=== PATIENT | female | born 1955 | race Caucasian/White ===

== ENCOUNTER 2025-01-02 09:45 | Emergency (ER) | payer MEDICARE, SELFPAY ==
[2025-01-02] VITALS (7 sets, daily range): BP systolic 123–172; BP diastolic 59–98; BMI 20.9
--- NOTE | 2025-01-02 09:58 | ED.GENMED ---
History of Present Illness
General
Chief Complaint: Chest Pain
Source: patient
Exam Limitations: none
Time Seen by Provider: 01/02/25 09:55
History of Present Illness
History of Present Illness:
69yoF with no significant past medical history presenting for evaluation of chest pain. Patient reports a history of anxiety and typically has some dull chest pain daily. She was in the process of waking up this morning around 5:30 AM when she
reports two episodes of sharp discomfort that occurred in succession. The sharp pain has since resolved but she has been experiencing some dull pain which she states is typical for her. She denies any associated dizziness, syncope, diaphoresis,
shortness of breath, nausea, vomiting. 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 She does not take any prescription medications but takes OTC supplements. No tobacco use.
Phy Exam
General Physical Exam
General Presentation: well appearing and no apparent distress
General Skin: warm and dry
General Habitus: normal
General Mental: alert
ENT Exam
ENT Exam: normocephalic
Cardiovascular Exam
Cardiovascular Exam: regular rate/rhythm, no edema, no murmur and normal peripheral pulses
Pulmonary Exam
Pulmonary Exam: lungs clear, no respiratory distress, no rales, no crackles, no rhonchi and no wheezing
Neurological Exam
Neurological Exam: alert
Melvin Coma Scale
Eye Opening: Spontaneous
Verbal Response: Oriented
Motor Response: Obeys Commands
GCS Total Score: 15
Skin Exam
Skin Exam: normal color and warm/dry
Psychiatric Exam
Psychiatric Exam: normal mood/affect
Scores
Heart Score for Chest Pain Patients
STEMI patient?: No
History: Slightly or Non-Suspicious
ECG: Nonspecific Repolarization
Age: >/= 65 years
Risk Factors: No Risk Factors
Troponin: </= Normal Limit
Heart Score for Chest Pain Patients: 3
Heart Score Risk: 2.5% MACE over next 6 weeks
Course
Orders/Labs/Results
Orders:
Orders
01/02/25 09:51
Electrocardiogram (*1) Urgent
Reason for Study: Chest Pain
EKG- Treatment ONCE
01/02/25 10:09
Cardiac Monitoring- Treatment ONCE
IV Insert/Care/Rem.- Treatment PRN
O2 Therapy [RESP] Urgent
Titrate/Wean O2 to maintain O2 sat greater than (%): 90
Special Instructions: Maintain sats >/=90%
Pulse Ox/spot Check [RESP] Urgent
Quantity: 1
Special Instructions: ON ROOM AIR
01/02/25 10:16
CXR2 [CR Chest - 2 Views ] Urgent
Comment:
Reason For Exam: chest pain
01/02/25 10:31
Complete Blood Count/With Diff Urgent
Comprehensive Metabolic Panel Urgent
Lipase Urgent
Magnesium Urgent
TSH Reflex To Free T4 Urgent
Troponin I Urgent
01/02/25 11:41
EKG- Treatment ONCE
01/02/25 13:30
Electrocardiogram (*1) Urgent
Reason for Study: Chest Pain
01/02/25 13:35
Troponin I Urgent
Abnormal Lab Results
01/02/25
10:31
Absolute Lymphs (auto) 1.0 L 10^3/uL
(1.2-3.4)
Lymphocytes % 18.7 L %
(20.5-51.1)
Glucose 117 H mg/dl
(70-99)
Albumin 5.1 H g/dl
(3.5-5.0)
01/02/25 10:31
01/02/25 10:31
Vital Signs
Initial and Last Documented VS:
Initial Vital Signs
Temp Pulse Resp BP Pulse Ox
97.8 F 105 20 172/92 99
01/02/25 09:47 01/02/25 09:47 01/02/25 09:47 01/02/25 09:47 01/02/25 09:47
Last Documented Vital Signs
Temp Pulse Resp BP Pulse Ox
97.8 F 79 16 123/80 98
01/02/25 09:47 01/02/25 14:00 01/02/25 14:00 01/02/25 14:00 01/02/25 14:00
MDM/Problems Addressed
Differential Diagnosis Includes:
69yoF here with chest pain. Had sharp chest pain while waking up this AM which has resolved. Has chronic dull chest pain daily. Multifocal PVCs noted on the monitor and patient reports a history of an 'irregular HR' for many years but has not seen
cardiology. Exam otherwise reassuring. Differential diagnosis includes but is not limited to: musculoskeletal chest pain, pneumonia, esophagitis, ACS
Initial ED plan: Triage EKG shows NSR with nonspecific ST changes in lateral leads which appear similar to prior EKG in 2008. Will check cardiac labs, magnesium, TSH, and CXR.
*Pulse Oximetry
SaO2: 99
Oxygen Mode of Delivery: Room air
Patient hypoxic: no
*EKG
Interpreted by ED Provider?: Yes
EKG Intrepretation Date: 01/02/25
Heart Rate: 86
Rate: normal
Rhythm: sinus and PVC's
[place]: normal axis
Interval: normal interval
QRS Pattern: normal QRS
Ischemia: non-specific ST changes (ST/T wave changes in lateral leads, also noted on prior EKG in 2008)
*Critical Care Note
Total Time (30-74mins, 75-104mins- exclusive of procedures): Not Applicable
Update Note
Update Note:
Troponin normal. Remainder of labs unremarkable including normal electrolytes and TSH. CXR clear. Repeat EKG and troponin obtained at 3 hours. EKG unchanged. Troponin mildly increased to 0.20 although still within normal range and patient remains
asymptomatic on multiple reassessments. She has not had any pain since arriving to the ED. Patient stable for discharge but will have her follow up with chest pain hotline. ED return precautions reviewed and patient discharged in stable condition.
ED Attending Note
-
Portions of this chart may have been created with voice recognition software.� Occasional wrong word or��sound alike� substitutions may have occurred due to the inherent limitations of voice recognition software.
Discharge Plan
Departure
Patient Disposition: Home (Routine Discharge)
Date of Disposition: 01/02/25
Time of Disposition: 14:41
Patient with high blood pressure during this ER visit?: No
Discharge Problem:
Chest pain
Instructions: Chest Pain DCA Follow Up
Prescriptions:
No Action
cyanocobalamin (vitamin B-12) 2,500 mcg Tablet, Sublingual
5,000 mcg SUBLINGUAL DAILY
Theragen Tablet
1 tab PO DAILY
vitamin E 1,000 unit Tablet
1,000 tab PO DAILY
[place] 3 Capsule
4,200 mg PO DAILY
magnesium glycinate 100 mg Tablet
500 mg PO DAILY
lutein-zeaxanthin 40-1,600 mg-mcg Capsule
1 cap PO DAILY
Collagen Skin Renewal 30-833.3 mg Tablet
1 tab PO DAILY
vitamin D3-vitamin K2 125 mcg (5,000 unit)-100 mcg Capsule
1 cap PO DAILY
Coq10 With Mct Oil
100 mg PO DAILY
Referrals:
NONE,* [Family Provider, Internal Medicine]
Emmanuel Mendieta MD [Active, Cardiology]
Activity Restrictions/Additional Instructions:
Please follow-up with your family doctor and cardiology. Return to the ER immediately with any new or worsening symptoms.
Interventions
Interventions:
*Risk Screen - Suicide Last Done: 01/02/25 09:47
*General Assessment Last Done: 01/02/25 09:47
*Neglect/Abuse Screening Last Done: 01/02/25 09:47
*ED- Fall Risk Assessment Last Done: 01/02/25 10:03
*ED COVID-19 Vaccine History Last Done: 01/02/25 10:03
*ED Influenza Vaccine History Last Done: 01/02/25 10:03
*Nursing Disposition Last Done: 01/02/25 14:59
ED- Cardiac Assessment Last Done: 01/02/25 10:30
Discharge Date and Time
Discharge Date/Time: 01/02/25 15:00
Print Language: AZERI
[2025-01-02 10:40] LABS: Hematocrit 45.1 % (37.0-47.0); Hemoglobin 15.0 g/dL (12.0-16.0); Mean Corp Hgb Conc. 33.3 g/dL (33.0-37.0); Mean Corpuscular Volume 90.9 fL (81.0-99.0); Nucleated Red Blood Cells % 0 %; Platelet Count 203 10^3/uL (130-400); Red Cell Dist. Width 12.5 % (11.5-14.5)
[2025-01-02 11:07] LABS: Troponin I < 0.012 ng/ml
[2025-01-02 11:11] LABS: ALT (SGPT) 22 U/L (0-35); AST (SGOT) 25 U/L (14-36); Albumin 5.1 g/dl (3.5-5.0); Alkaline Phosphatase 69 U/L (38-126); Blood Urea Nitrogen 14 mg/dl (7-17); Calcium 9.8 mg/dl (8.4-10.2); Carbon Dioxide 26 mmol/L (22-30); Chloride 103 mmol/L (98-107); Estimated Creatinine Clearance 71 ml/min; Glucose 117 mg/dl (70-99); Lipase 84 U/L (23-300); Magnesium 2.2 mg/dl (1.6-2.3); Potassium 4.0 mmol/L (3.5-5.1); Sodium 138 mmol/L (135-145); Total Protein 7.8 g/dl (6.3-8.2); eGFR > 60.00
[2025-01-02 14:15] LABS: Troponin I 0.020 ng/ml
== END 2025-01-02 15:00 | disposition home or self-care (01) ==
LOC: EMR 09:45
PROVIDERS: Physician Assistant; EMERGENCY PHYSICIAN Emergency Medicine
DX: R07.9 Chest pain, unspecified (principal); I49.3 Ventricular premature depolarization; F41.9 Anxiety disorder, unspecified
CPT/HCPCS: 99284; 71046; 80053; 83690; 83735; 84443; 84484; 85025; 93005

== ENCOUNTER → 2025-01-19 14:44 | Outpatient (REF) | payer MEDICARE, OTHER, SELFPAY | LOC: RCS 14:44 | PROVIDERS: ATTENDING PHYSICIAN Internal Medicine Cardiovascular Disease | DX: R07.9 Chest pain, unspecified (principal); E78.00 Pure hypercholesterolemia, unspecified | CPT/HCPCS: 93306 ==

== ENCOUNTER → 2025-01-20 10:46 | Outpatient (REF) | payer MEDICARE, OTHER, SELFPAY | LOC: RAD 10:46 | PROVIDERS: ATTENDING PHYSICIAN Internal Medicine Cardiovascular Disease | DX: R07.9 Chest pain, unspecified (principal); E78.00 Pure hypercholesterolemia, unspecified | CPT/HCPCS: 75571 ==

== ENCOUNTER → 2025-02-06 08:18 | Outpatient (REF) | payer MEDICARE, OTHER, SELFPAY | LOC: RCS 08:18 | PROVIDERS: ATTENDING PHYSICIAN Internal Medicine Cardiovascular Disease | DX: R07.9 Chest pain, unspecified (principal); E78.00 Pure hypercholesterolemia, unspecified | CPT/HCPCS: 93017; 93350 ==

== ENCOUNTER → 2025-02-15 08:48 | Outpatient (REF) | payer MEDICARE, OTHER, SELFPAY ==
[2025-02-15 10:54] LABS: Blood Urea Nitrogen 19 mg/dl (7-17); Calcium 10.2 mg/dl (8.4-10.2); Carbon Dioxide 29 mmol/L (22-30); Chloride 102 mmol/L (98-107); Glucose 97 mg/dl (70-99); Potassium 4.7 mmol/L (3.5-5.1); Sodium 138 mmol/L (135-145); eGFR > 60.00
== END ==
LOC: REG 08:48
PROVIDERS: ATTENDING PHYSICIAN Internal Medicine Cardiovascular Disease
DX: I47.20 Ventricular tachycardia, unspecified (principal); I42.8 Other cardiomyopathies
CPT/HCPCS: 36415; 71046; 80048